=== PATIENT | female | born 1985 | race Caucasian/White ===

== ENCOUNTER → 2022-06-15 | Day surgery (SDC) | payer OTHER ==
[~2022-06-15] MED LIST: FENTANYL CITRATE/PF 100MCG/2 ML INJ ONE; MIDAZOLAM HCL 2 MG/2 ML VIAL ONE; MOXIFLOXACIN HCL(OPTH) 3 ML BTL ONE; OR PHACO EYE KIT ONE; PHENYLEPHRINE HCL 10% 5 ML OPTH SOLN ONE; TROPICAMIDE 1% OPTH SOLN 15 ML BTL ONE
[2022-06-15 13:20] VITALS: BP 119/79
== END | disposition home or self-care (01) ==
LOC: OR 10:28
PROVIDERS: ATTEND Ophthalmology
DX: H52.02 Hypermetropia, left eye (principal)
CPT/HCPCS: 66984; 81025; J2250; J3010